=== PATIENT | female | born 1980 | race Caucasian/White ===

== ENCOUNTER 2017-03-07 23:15 | Emergency (ER) | payer OTHER ==
[2017-03-07 23:40] VITALS: BP 131/97; PULSE 86; RESP 16; TEMP 98.1; O2SAT 98
--- NOTE | 2017-03-07 23:45 | EDPHY ---
H & P Time Seen by Provider: 03/07/17 23:33 HPI/ROS: CC: "I cut my finger on a knife while washing dishes" HPI: This 37 y/o left handed female presents to the ED with her after cutting her right index finger on a knife while washing dishes just prior to arrival. She felt it hit bone. The pain is 2/10 and sharp. She can move the finger normally. Her tetanus status is up-to-date. ROS: REVIEW OF SYSTEMS: Constitutional: No fever, no chills. Eyes: No discharge. ENT: No sore throat. Respiratory: No cough, no shortness of breath. Cardiac: No chest pain, no palpitations. Gastrointestinal: No abdominal pain, no vomiting. Genitourinary: No dysuria. Past Medical/Surgical History: PMH: Omar's thyroiditis, BRCA gene positive, depression PSH: Allergies: PCN - Hives Meds: Levothyroxine, vitamins, Claritin, ?Triiodothyronine Social History: Denies tobacco products; has an occasional alcoholic beverage; denies marijuana or other drugs Smoking Status: Never smoked Physical Exam: General Appearance: Alert, no distress. Eyes: Pupils equal and round no pallor or injection. ENT, Mouth: Mucous membranes are moist. Respiratory: There are no retractions, lungs are clear to auscultation. Cardiovascular: Regular rate and rhythm. Gastrointestinal: Abdomen is nondistended. Neurological: Awake and alert, sensory and motor exams grossly normal. Skin: Warm and dry, normal for ethnicity. Musculoskeletal: Neck is supple nontender. Extremities are symmetrical, full range of motion. There is a 2 cm linear laceration on the dorsal aspect of the right index finger just distal to the PIP joint. Circulation, motor and sensory are intact. Psychiatric: Patient is oriented X 3, there is no agitation. DIFFERENTIAL DIAGNOSIS: After history and physical exam differential diagnosis was considered for but not limited to: finger laceration; no concern for fracture, tendon injury or foreign body. Constitutional: Initial Vital Signs Temperature (C) 98.1 F 03/07/17 23:18 Heart Rate 86 03/07/17 23:18 Respiratory Rate 16 03/07/17 23:18 Blood Pressure 131/97 H 03/07/17 23:18 O2 Sat (%) 98 03/07/17 23:18 O2 Delivery Mode Room Air Allergies/Adverse Reactions: Penicillins Allergy (Intermediate, Verified 03/07/17 23:27) Hives soy [Soy] Allergy (Intermediate, Verified 03/07/17 23:27) STOMACH UPSET, ABDOMINAL PAIN wheat [Wheat] Allergy (Intermediate, Verified 03/07/17 23:27) JOINT PAIN Home Medications: Medication Instructions Recorded Claritin 03/07/17 Multivitamin Tablet 03/07/17 Synthroid 03/07/17 Vitamine D 03/07/17 Other Throid Med (Tsh) 03/08/17 Medical Decision Making Procedures: Procedure: Laceration repair. Verbal consent was obtained from the patient. The right index finger laceration was anesthetized by digital block in the usual fashion using 4ml of 1 % plain lidocaine. The wound was irrigated and cleansed by the word processor techniciantramaine Lazar and additionally by , draped and explored to its base with a gloved finger. There were no deep structures involved. No tendon injury was identified. No foreign body. The wound was repaired with #5 4.0 Prolene simple interrupted sutures. The wound repair was good and the patient tolerated the procedure well. The procedure was performed by myself and took approximately 10 minutes. A sterile dressing was applied by the word processor technicianNagi redd. ED Course/Re-evaluation: The patient was seen and examined. Vital signs reviewed. The patient's blood pressure was slightly elevated. She states she had a gynecology appointment just 3 weeks ago in her blood pressure is normal. She was advised to have this recheck with her primary care provider at the time of her suture removal. The wound was anesthetized, cleansed, and repaired in the usual fashion. Please refer to the procedure note. The patient's tetanus is up-to-date. No antibiotics are indicated. She should take [id number] pain medications as needed. Suture removal in approximately 10 days. Recheck sooner if any signs of infection or other concerns. Patient and understood. All questions were answered. Departure - Departure Disposition: Home, Routine, Self-Care Clinical Impression: Laceration of right index finger w/o foreign body w/o damage to nail Condition: Good Instructions: Care For Your Stitches (ED), Finger Laceration (ED) Additional Instructions: Keep the wound clean and dry as directed. Suture removal in approximately 10 days. Recheck sooner if any sign of infection or other concerns as discussed. Referrals: Cielo Estrada MD [Primary Care Provider] - As per Instructions
== END 2017-03-07 23:57 | disposition home or self-care (01) ==
LOC: CED 23:15
PROC: 0HQFXZZ Repair Right Hand Skin, External Approach (ICD-10-PCS; principal; 2017-03-07)
DX: S61.210A Laceration without foreign body of right index finger without damage to nail, initial encounter (principal); W26.0XXA Contact with knife, initial encounter; Y99.8 Other external cause status; Y93.G1 Activity, food preparation and clean up

== ENCOUNTER → 2017-08-14 | Outpatient (CLI) | payer OTHER | LOC: CIMAGING 14:13 | PROVIDERS: ATTEND Internal Medicine Hematology & Oncology | DX: Z12.31 Encounter for screening mammogram for malignant neoplasm of breast (principal); Z15.01 Genetic susceptibility to malignant neoplasm of breast ==

== ENCOUNTER → 2018-05-22 | Outpatient (CLI) | payer OTHER ==
[~2018-05-22] MED LIST: ACETAMINOPHEN 325 MG TAB PO PRN; BUPIVACAINE 0.5% 30 ML SDV ONE; FLUMAZENIL 0.5 MG/5 ML MDV IVP PRN; GADOBUTROL 10 ML VIAL IVP ONE; LIDOCAINE 1% 5 ML SDV ONE; MIDAZOLAM 2 MG/2 ML VIAL IVP PRN; NA BICARBONATE 50 MEQ/50 ML VIAL ONE; NALOXONE HCL 0.4 MG/ML INJ IVP PRN; NS 1,000 ML IV SCH; ONDANSETRON 4 MG/2 ML VIAL IVP PRN; fentaNYL 100 MCG/2 ML INJ IVP PRN
[2018-05-22 08:53] VITALS: BP 143/99
--- NOTE | 2018-05-22 09:46 | PDGENHP ---
History & Physical Chief Complaint: abnl breast MRI Pertinent Past, Social, Family History: BRCA positive, prior b9 MRI breast bx Cardiorespiratory Assessment: RRR, clear
--- NOTE | 2018-05-22 09:46 | PDPROPOC ---
Sedation Plan of Care Sedation Plan of Care: vital signs stable, mental status noted, patient educated of risks, benefits, alternatives, patient can tolerate sedation ASA Classification: ASA 1 Planned drugs: fentanyl, midazolam Mallampati Score: Class 2 Mallampati Reference Image: Patient passed 3-3-2 rule?: Yes
== END ==
LOC: FIMAGING 08:07
PROVIDERS: ATTEND Internal Medicine Hematology & Oncology
PROC: 0HBU3ZX Excision of Left Breast, Percutaneous Approach, Diagnostic (ICD-10-PCS; principal; 2018-05-22)
DX: D24.2 Benign neoplasm of left breast (principal)
CPT/HCPCS: A9585; J2250; J2310; J3010

== ENCOUNTER → 2018-11-07 | Outpatient (CLI) | payer OTHER | LOC: CIMAGING 07:37 ==